=== PATIENT | male | born 1985 | race Caucasian/White ===

== ENCOUNTER 2017-09-20 20:43 | Emergency (ER) | payer MEDICAID, OTHER, SELFPAY ==
[~2017-09-20] VITALS: Ht 177.8 cm; Wt 86.3 kg
[2017-09-20 20:55] VITALS: BP 145/98
== END 2017-09-20 22:13 | disposition home or self-care (01) ==
LOC: ED 21:55
DX: R42 Dizziness and giddiness (principal)
CPT/HCPCS: 99283

== ENCOUNTER 2017-09-26 21:55 | Emergency (ER) | payer MEDICAID ==
[~2017-09-26] VITALS: Ht 177.8 cm; Wt 91.1 kg
[2017-09-26 21:57] VITALS: BP 144/81
== END 2017-09-26 22:25 | disposition home or self-care (01) ==
LOC: ED 22:23 → MERGE 22:23 → ED 22:25
DX: K02.9 Dental caries, unspecified (principal); F11.10 Opioid abuse, uncomplicated
CPT/HCPCS: 99283

== ENCOUNTER 2017-11-19 14:54 | Emergency (ER) | payer MEDICAID ==
[~2017-11-19] VITALS: Ht 177.8 cm; Wt 89.1 kg
[2017-11-19 14:55] VITALS: BP 160/93
== END 2017-11-19 15:41 | disposition home or self-care (01) ==
LOC: ED 15:35
DX: G56.03 Carpal tunnel syndrome, bilateral upper limbs (principal)
CPT/HCPCS: 99283